=== PATIENT | male | born 1950 | race Caucasian/White ===

== ENCOUNTER → 2017-08-21 07:48 | Outpatient (CLI) | payer MEDICARE, SELFPAY ==
[2017-08-21 08:39] LABS: Alanine Aminotransferase 53 IU/L (21-72); Aspartate Aminotransferase 31 IU/L (17-59); BUN Creatinine Ratio 31.4 (6-22); Calcium 9.2 mg/dL (8.4-10.2); Cholesterol 79 mg/dL (140-199); Estimated Glomerular Filt Rate > 60.0 mL/min (>60); Glucose 131 mg/dL (80-110); HDL Cholesterol 24 mg/dL (40-60); HEMOLYSIS < 15 (0-50); LDL Cholesterol Calculated 39 mg/dL (<100); Potassium 4.5 mmol/L (3.4-5.1); Sodium 140 mmol/L (137-145); Triglycerides 81 mg/dL (35-150)
== END ==
PROVIDERS: PCP Internal Medicine; Visit Provider Internal Medicine
DX: I10 Essential (primary) hypertension (principal); Z12.5 Encounter for screening for malignant neoplasm of prostate; E78.5 Hyperlipidemia, unspecified
CPT/HCPCS: 36415; 80048; 80061; 84450; 84460; G0103

== ENCOUNTER → 2018-07-26 07:56 | Outpatient (CLI) | payer MEDICARE, SELFPAY ==
[2018-07-26 08:39] LABS: Alanine Aminotransferase 47 IU/L (21-72); Aspartate Aminotransferase 30 IU/L (17-59); Blood Urea Nitrogen 25 mg/dL (9-20); Calcium 9.4 mg/dL (8.4-10.2); Carbon Dioxide 29 mmol/L (22-32); Chloride 100 mmol/L (98-107); Cholesterol 89 mg/dL (140-199); Estimated Glomerular Filt Rate > 60.0 mL/min (>60); Glucose 112 mg/dL (80-110); HDL Cholesterol 27 mg/dL (40-60); HEMOLYSIS < 15 (0-50); LDL Cholesterol Calculated 41 mg/dL (<100); Potassium 4.1 mmol/L (3.4-5.1); Sodium 137 mmol/L (137-145); Triglycerides 106 mg/dL (35-150)
[2018-07-26 09:08] LABS: Prostate Specific Antigen Scrn 1.27 ng/mL (0.1-4.0)
[2018-07-26 09:27] LABS: Vitamin D 25 Hydroxy (D3) 36.9 ng/mL (30.0-100.0)
== END ==
PROVIDERS: PCP Internal Medicine; Visit Provider Internal Medicine
DX: Z12.5 Encounter for screening for malignant neoplasm of prostate (principal); E78.5 Hyperlipidemia, unspecified; E55.9 Vitamin D deficiency, unspecified; I25.10 Atherosclerotic heart disease of native coronary artery without angina pectoris
CPT/HCPCS: 36415; 80048; 80061; 82306; 84450; 84460; G0103

== ENCOUNTER → 2019-11-26 08:04 | Outpatient (CLI) | payer MEDICARE, SELFPAY ==
[2019-11-26 09:27] LABS: Hemoglobin A1C% w Est Avg Glu 6.8 % (4.0-6.0)
[2019-11-26 09:46] LABS: Alanine Aminotransferase 41 IU/L (<50); Albumin 4.4 g/dL (3.5-5.0); Albumin Globulin Ratio 1.5 (1.0-2.8); Alkaline Phosphatase 51 U/L (38-126); Aspartate Aminotransferase 29 IU/L (17-59); BUN Creatinine Ratio 22.5 (6-22); Bilirubin Total 0.8 mg/dL (0.2-1.3); Blood Urea Nitrogen 18 mg/dL (9-20); Calcium 9.4 mg/dL (8.4-10.2); Carbon Dioxide 28 mmol/L (22-32); Chloride 101 mmol/L (98-107); Cholesterol 105 mg/dL (140-199); Estimated Glomerular Filt Rate > 60.0 mL/min (>60); Globulin 2.9 g/dL (1.7-4.1); Glucose 147 mg/dL (80-110); HDL Cholesterol 32 mg/dL (40-60); HEMOLYSIS < 15 (0-50); LDL Cholesterol Calculated 38 mg/dL (<100); Potassium 4.4 mmol/L (3.4-5.1); Sodium 137 mmol/L (137-145); Total Protein 7.3 g/dL (6.3-8.2); Triglycerides 177 mg/dL (35-150)
== END ==
PROVIDERS: PCP Internal Medicine; Referring Provider Internal Medicine; Visit Provider Internal Medicine
DX: E78.5 Hyperlipidemia, unspecified (principal); E11.9 Type 2 diabetes mellitus without complications; Z12.5 Encounter for screening for malignant neoplasm of prostate; I10 Essential (primary) hypertension
CPT/HCPCS: 36415; 80053; 80061; 83036; 84153; G0103

== ENCOUNTER → 2021-02-19 08:24 | Outpatient (CLI) | payer MEDICARE, SELFPAY ==
[2021-02-19 10:20] LABS: Hemoglobin A1C% w Est Avg Glu 6.2 % (4.0-6.0)
[2021-02-19 10:21] LABS: Alanine Aminotransferase 59 IU/L (<50); Albumin 4.4 g/dL (3.5-5.0); Albumin Globulin Ratio 1.6 (1.0-2.8); Alkaline Phosphatase 47 U/L (38-126); Aspartate Aminotransferase 38 IU/L (17-59); BUN Creatinine Ratio 21.3 (6-22); Bilirubin Total 0.8 mg/dL (0.2-1.3); Blood Urea Nitrogen 20 mg/dL (9-20); Calcium 9.4 mg/dL (8.4-10.2); Carbon Dioxide 30 mmol/L (22-32); Chloride 99 mmol/L (98-107); Cholesterol 125 mg/dL (140-199); Estimated Glomerular Filt Rate > 60.0 mL/min (>60); Globulin 2.8 g/dL (1.7-4.1); Glucose 152 mg/dL (80-110); HDL Cholesterol 30 mg/dL (40-60); HEMOLYSIS < 15 (0-50); LDL Cholesterol Calculated 57 mg/dL (<100); Potassium 4.2 mmol/L (3.4-5.1); Sodium 137 mmol/L (137-145); Total Protein 7.2 g/dL (6.3-8.2); Triglycerides 188 mg/dL (35-150)
[2021-02-19 10:47] LABS: Prostate Specific Antigen 1.82 ng/mL (0.10-4.00)
[2021-02-19 11:07] LABS: Creatinine Urine Random 100.8 mg/dL
[2021-02-19 11:12] LABS: Microalbumin Urine Random < 0.6 mg/dL (0-1.6)
[2021-02-19 11:16] LABS: Hep C Virus Ab w/Reflex Quant NEGATIVE s/c (NEGATIVE)
== END ==
PROVIDERS: PCP Internal Medicine; Referring Provider Internal Medicine; Visit Provider Internal Medicine
DX: E11.65 Type 2 diabetes mellitus with hyperglycemia (principal); E78.5 Hyperlipidemia, unspecified; Z12.5 Encounter for screening for malignant neoplasm of prostate; Z11.59 Encounter for screening for other viral diseases
CPT/HCPCS: 36415; 80053; 80061; 82043; 82570; 83036; 84153; 86803; G0103

== ENCOUNTER → 2021-04-09 10:00 | Outpatient (CLI) | payer MEDICARE, SELFPAY ==
[2021-04-09 11:08] LABS: COVID19 -Nasal RAPID Negative (Negative)
== END ==
PROVIDERS: PCP Internal Medicine; Visit Provider Nurse Practitioner Critical Care Medicine
DX: Z20.822 Contact with and (suspected) exposure to COVID-19 (principal)
CPT/HCPCS: 87635

== ENCOUNTER 2022-08-04 02:21 | Emergency (ER) | payer MEDICARE, SELFPAY ==
[2022-08-04 02:29] VITALS: BP 180/91; PULSE 82; RESP 18; TEMP 36.6; O2SAT 95; BMI 28.6
--- NOTE | 2022-08-04 04:07 | DI.CT.S_ITS ---
PROCEDURE: CT CERVICAL SPINE WO CON INDICATIONS: neck pain, injured on boat. TECHNIQUE: Noncontrast 3 mm thick sections acquired from the skull base to the T4 level. Sagittal and coronal reformats were then constructed. For radiation dose reduction, the following was used: automated exposure control, adjustment of mA and/or kV according to patient size. COMPARISON: [facility] [place], CR, XR CERVICAL SPINE WITH OBLIQUES, 09/28/2021, 13:11. [facility], CR, CERVICAL SPINE 2 OR 3 VIEWS, 06/11/2016, 19:25. [place] [facility], MR, MR CERVICAL SPINE WO CON, 07/01/2016, 12:28. CR, CERVICAL SPINE 4 VIEWS, 04/05/2012, 11:30. [facility], CT, C-SPINE WITHOUT CONTRAST, 05/15/2016, 20:26. FINDINGS: Image quality: Excellent. Bones: No fractures or dislocations. Trace anterolisthesis of C3 on C4 and C4 on C5. Degenerative disc disease, severe at C5-C6, moderate at C6-C7. Bilateral facet arthropathy throughout the cervical spine, most pronounced at C4-C5 on the right. Visualized superior ribs are intact. Soft tissues: Prevertebral soft tissues are normal in thickness. No paravertebral hematomas. No apical pneumothoraces. IMPRESSION: 1. No cervical spine fractures. 2. Degenerative changes as described. 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 Dictated by: Savanna Thornton M.D. on 08/04/2022 at 8:00 Approved by: Savanna Thornton M.D. on 08/04/2022 at 8:03
[2022-08-04] MEDS: LORazepam 0.5 MG TABLET PO (04:14)
[2022-08-04 04:18] VITALS: BP 161/77; PULSE 74; RESP 16; O2SAT 95
--- NOTE | 2022-08-04 06:00 | ED_ITS ---
HPI - Neck Pain/Injury General Chief Complaint: Neck Pain/Injury Stated Complaint: neck pain Time Seen by Provider: 08/04/22 04:06 Source: patient Mode of arrival: Ambulatory Limitations: no limitations History of Present Illness HPI Narrative: This is a 71-year-old with history of prior [place], patient takes medication for hypertension, dyslipidemia and Plavix daily. Patient states he is had about years of chronic neck pain intermittently. 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 He is never required any significant interventions. He had been taking NSAIDs intermittently over the years but bumped heart attacks after taking them regularly and was told to avoid them in the future. He states he had another episode about 6-7 months ago. He states this does not feel anything like his prior heart attacks. He states about 5 days ago he started had increasing worsening of pain in the neck little bit more on the left. He states they have a new puppy that pulls, he then went [place] in [place] were quite rough through the weekend and increased his symptoms quite a bit. He did not have any trauma or falls but states there was a lot movement banging. 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 Patient states his range of motion is improving but felt sort of stuck to the left. He had a big jolt down his body of pain. He states no pain down his arms. No numbness, tingling or weakness at any point. 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 He has not appreciated any mobility issues with his arms below but lifting them up high above his head. Patient states he has seen Dr. Beckford for Orthopedic surgery and has some available for follow-up. He denies any drug allergies. No tobacco, alcohol or illicit. Related Data Home Medications Medication Instructions Recorded Confirmed ramipril 10 mg capsule (Altace) 10 mg PO QDAY ##0 04/27/12 01/24/22 clopidogrel 75 mg tablet 75 mg PO QDAY ##0 05/30/16 01/24/22 metoprolol tartrate 25 mg tablet 25 mg PO BID ##0 05/30/16 01/24/22 cyclobenzaprine 5 mg tablet ##0 06/11/16 01/24/22 metformin PO 08/08/18 01/24/22 nitroglycerin sublingual 08/08/18 01/24/22 Previous Rx's Medication Instructions Recorded oxycodone-acetaminophen 5 mg-325 0 PO Q4H PRN #10 tabs 03/16/16 mg tablet (Percocet) oxycodone-acetaminophen 10 mg-325 1 tab PO Q4HP PRN #60 tabs 06/01/16 mg tablet (Percocet) azithromycin 250 mg tablet See Rx Instructions PO .COMPLEX #6 08/08/18 tabs lidocaine 5 % topical patch 1 patch topical DAILY #30 ea 08/04/22 lorazepam 0.5 mg tablet (Ativan) 0.5 mg PO TID PRN muscle spasm #10 08/04/22 tabs oxycodone-acetaminophen 5 mg-325 1 tab PO Q6H PRN pain #10 tabs 08/04/22 mg tablet (Percocet) Allergies Allergy/AdvReac Type Severity Reaction Status Date / Time No Known Allergies Allergy Uncoded 01/24/22 18:28 Review of Systems Review of Systems ROS Unobtainable: All systems reviewed & are unremarkable except as noted in HPI and below Patient History Social History Smoking Status: Never smoker Smoking Status: Never smoker Exam Narrative Exam Narrative: GEN: well nourished, well appearing male, alert and oriented x 3, patient appears to be in [id number] distress. HEENT: Atraumatic, pupils are equal round reactive to light, extraocular movements are intact, nares are clear. Throat is clear without any exudates, erythema, tonsillar enlargement or uvular deviation, normal speech. HEART: Regular rate and rhythm without murmur, clicks, rubs. pulses are equal in upper extremities LUNGS:Lungs clear to auscultation, no wheezes, rales, crackles, chest moves symmetrically ABD:bowel sounds normal, soft, non-tender, no guarding, rebound, rigidity, no masses noted, no hepatosplenomegaly :No CVA tenderness MSCL: Non-tender, no muscle atrophy, muscles strength 5/5 upper and lower extremities, full range of motion. BACK: No cervical, thoracic or lumbar vertebral point tenderness. Patient has decreased range of motion of the neck patient can rotate about 45? to the right can go about 30-35 degrees to the left, patient has slight flexion but is uncomfortable with extension and flexion in general as well as side bending. Patient's gait is normal. 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 2+ radial pulses bilaterally. NEURO:CN 2-12 intact, sensation normal. SKIN: No rash, erythema or skin changes. No bruising. Initial Vital Signs Initial Vital Signs: Vital Signs Temperature 98 F 08/04/22 02:29 Pulse Rate 82 08/04/22 02:29 Respiratory Rate 18 08/04/22 02:29 Blood Pressure 180/91 H 08/04/22 02:29 Pulse Oximetry 95 08/04/22 02:29 Oxygen Delivery Method Room Air 08/04/22 02:29 Course Orders Ordered: Discontinued Medications Lidocaine (Remove Lidocaine Patch) 1 each TOP BEDTIME ONE Stop: 08/04/22 05:41 Last Admin: 08/04/22 06:34 Dose: Not Given Documented By: MOHINDER Lidocaine (Lidocaine Patch 1 Each Adh..Patch) 1 each TOP NOW ONE Stop: 08/04/22 05:46 Last Admin: 08/04/22 06:01 Dose: 1 each Documented By: MOHINDER Lorazepam (Lorazepam 0.5 Mg Tablet) 0.5 mg PO NOW ONE Stop: 08/04/22 04:09 Last Admin: 08/04/22 04:14 Dose: 0.5 mg Documented By: Vital Signs Vital signs: Vital Signs - 8 hr 08/04/22 02:29 08/04/22 04:18 Temperature 98 F Pulse Rate 82 74 Respiratory Rate 18 16 Blood Pressure 180/91 H 161/77 H Pulse Oximetry 95 95 Oxygen Delivery Method Room Air Room Air MDM - Neck Pain/Injury Imaging Data CT - cervical spine: Radiologist's Impression: Straightening of the normal cervical lordosis. Vertebral body heights are well maintained. Intervertebral disc space narrowing at C3-4 C4-5 C5-6 C6-7-C7-T1 with broad based disc osteophyte complexes at C2-3 C3-4 C4-5 C5-6 C6-7 with bilateral neural foraminal narrowing at these levels and mild central canal stenosis. Multilevel uncovertebral facet arthrosis. No fracture or subluxation. Posterior elements are intact. Multilevel uncovertebral facet arthrosis. MDM Narrative Medical decision making narrative: This is a 71-year-old male who presents with increased neck pain patient denies any numbness tingling or weakness without any recent trauma. Patient has not had any acute neurologic changes. He is had chronic neck pain was fishing in [place] days ago was slowly improving and then as putting on his T- shirt and hyperextending his neck and elevating his arms felt sort of a crack and had increased pain. He took oral narcotic pain medication at home, had muscle relaxer and lidocaine patch here which has been helpful still uncomfortable but improving. CT C-spine does not show fracture but shows multiple potential causes for pain. He is neurologically intact and does not a ppear to require MRI at this time. Patient was given strict return precautions, he has orthopedic follow-up and for pain medication muscle relaxer and lidocaine patch. Patient given a copy of his CT report and discussed signs and symptoms to watch for and reasons to return emergently. Discharge Plan Departure Patient Disposition: Home Clinical Impression: Cervical pain (neck) Instructions: DI for Neck Pain Activity Restrictions/Additional Instructions: Your imaging shows narrowing throughout the cervical spine, osteophytes and bilateral neural foraminal narrowing and some mild central canal stenosis all of these can cause pain. Please follow-up with orthopedic surgery for recheck they may obtain an MRI if your symptoms are persisting. You can continue with lidocaine patches. You can take oxycodone 1-2 tablets every 6 hours as needed. This medication can make you sleepy do not drive, perform hazardous activities or make any major decisions while taking it.? This medication will make you constipated please take a stool softener once to twice daily until stools are soft and regular. You may take Ativan 1 tablet every 8 hours as needed.? This medication can also make you sleepy especially when taken with oxycodone.? Use with caution. Prescription sent to [facility] in [place]. 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 Prescriptions: New oxycodone-acetaminophen [Percocet] 5-325 mg tablet 1 tab PO Q6H PRN (Reason: pain) Qty: 10 0RF lorazepam [Ativan] 0.5 mg tablet 0.5 mg PO TID PRN (Reason: muscle spasm) Qty: 10 0RF lidocaine 5 % adhesive patch,medicated 1 patch topical DAILY Qty: 30 0RF Rx Instructions: leave on most painful area for up to 12 hrs No Action metformin PO nitroglycerin Sublingual azithromycin 250 mg tablet See Rx Instructions PO .COMPLEX Qty: 6 0RF Rx Instructions: take 500 mg today (day 1), then 250 mg for 4 days (days 2-5) PO ramipril [Altace] 10 MG capsule 10 mg PO QDAY Qty: 0 oxycodone-acetaminophen [Percocet] 5 MG/325 MG tablet 0 PO Q4H PRNQty: 10 0RF clopidogrel 75 MG tablet 75 mg PO QDAY Qty: 0 metoprolol tartrate 25 MG tablet 25 mg PO BID Qty: 0 oxycodone-acetaminophen [Percocet] 10 MG/325 MG tablet 1 tab PO Q4HP PRNQty: 60 0RF cyclobenzaprine 5 mg tablet Qty: 0 Referrals: Miscellaneous,Doctor, MD [Primary Care Provider] - Stand Alone Forms: Patient Portal/API
[2022-08-04] MEDS: LIDOCAINE PATCH 1 EACH ADH..PATCH TOP (06:01)
[2022-08-04 06:39] VITALS: BP 149/72; PULSE 69; RESP 16; O2SAT 96
== END 2022-08-04 06:42 | disposition home or self-care (01) ==
PROVIDERS: Emergency Provider Emergency Medicine
DX: M54.2 Cervicalgia (principal)
CPT/HCPCS: 72125; 99284

== ENCOUNTER → 2022-10-27 07:38 | Outpatient (CLI) | payer MEDICARE, SELFPAY ==
[2022-10-27 08:38] LABS: Creatinine Urine Random 70.3 mg/dL
[2022-10-27 08:41] LABS: Alanine Aminotransferase 37 IU/L (<50); Albumin 4.1 g/dL (3.5-5.0); Albumin Globulin Ratio 1.4 (1.0-2.8); Alkaline Phosphatase 53 U/L (38-126); Aspartate Aminotransferase 27 IU/L (17-59); BUN Creatinine Ratio 26.9 (6-22); Bilirubin Total 0.4 mg/dL (0.2-1.3); Blood Urea Nitrogen 21 mg/dL (9-20); Calcium 8.8 mg/dL (8.4-10.2); Carbon Dioxide 24 mmol/L (22-32); Chloride 104 mmol/L (98-107); Cholesterol 105 mg/dL (140-199); Estimated Glomerular Filt Rate > 60 mL/min (>60); Globulin 2.9 g/dL (1.7-4.1); Glucose 154 mg/dL (80-110); HDL Cholesterol 34 mg/dL (40-60); HEMOLYSIS < 15 (0-50); LDL Cholesterol Calculated 44 mg/dL (<100); Potassium 4.3 mmol/L (3.4-5.1); Sodium 137 mmol/L (137-145); Triglycerides 134 mg/dL (35-150)
[2022-10-27 08:49] LABS: Microalbumin Urine Random < 0.6 mg/dL (0-1.6)
[2022-10-28 06:33] LABS: Labcorp Hemoglobin (Hb) A1c 6.3 % (4.8-5.6)
[2022-10-28 12:41] LABS: PSA, Total 1.5 ng/mL (0.0-4.0)
== END ==
PROVIDERS: PCP Internal Medicine; Referring Provider Internal Medicine; Visit Provider Internal Medicine
DX: E78.5 Hyperlipidemia, unspecified (principal); E11.65 Type 2 diabetes mellitus with hyperglycemia; N40.0 Benign prostatic hyperplasia without lower urinary tract symptoms
CPT/HCPCS: 36415; 80053; 80061; 82043; 82570; 83036; 84153; 84154

== ENCOUNTER → 2023-02-09 14:09 | Outpatient (CLI) | payer MEDICARE, SELFPAY ==
[2023-02-09 16:26] LABS: C-Reactive Protein Quant < 0.5 mg/dL (<1.0)
== END ==
PROVIDERS: PCP Internal Medicine; Referring Provider Internal Medicine; Visit Provider Internal Medicine
DX: I20.0 Unstable angina (principal)
CPT/HCPCS: 36415; 86140

== ENCOUNTER → 2023-08-09 11:18 | Outpatient (CLI) | payer MEDICARE, SELFPAY ==
[2023-08-09 11:45] LABS: Add Manual Diff / Slide Review NO; Basophils Absolute Auto 0 /uL (0-100); Basophils Percent Auto 0.5 % (0-2); Eosinophils Absolute Auto 100 /uL (0-450); Eosinophils Percent Auto 0.7 % (2-4); Hematocrit 46.6 % (41-53); Hemoglobin 15.9 g/dL (13.5-17.5); Lymphocytes Absolute Auto 1300 /uL (1100-4500); Lymphocytes Percent Auto 14.5 % (25-40); Mean Corpuscular HGB Conc 34.2 % (30-36); Mean Corpuscular Hemoglobin 31.3 PG (26-34); Mean Corpuscular Volume 91.6 fL (80-100); Monocytes Absolute Auto 1000 /uL (0-900); Monocytes Percent Auto 10.3 % (3-14); Neutrophils Absolute Auto 6900 /uL (1500-7000); Platelet Count 223 X10^3/uL (150-400); Red Blood Cell Count 5.09 X10^6/uL (4.5-5.9); White Blood Cell Count 9.3 X10^3/uL (4.5-11.0)
[2023-08-09 11:52] LABS: INR 1.2 (0.9-1.3); Prothrombin Time 13.6 SECONDS (9.4-12.5)
[2023-08-09 11:57] LABS: Alanine Aminotransferase 37 IU/L (<50); Albumin 4.5 g/dL (3.5-5.0); Albumin Globulin Ratio 1.6 (1.0-2.8); Alkaline Phosphatase 48 U/L (38-126); Aspartate Aminotransferase 25 IU/L (17-59); BUN Creatinine Ratio 23.2 (6-22); Bilirubin Total 0.6 mg/dL (0.2-1.3); Blood Urea Nitrogen 19 mg/dL (9-20); Calcium 9.6 mg/dL (8.4-10.2); Carbon Dioxide 26 mmol/L (22-32); Chloride 109 mmol/L (98-107); Estimated Glomerular Filt Rate > 60 mL/min (>60); Globulin 2.8 g/dL (1.7-4.1); Glucose 184 mg/dL (80-110); HEMOLYSIS < 15 (0-50); Potassium 4.2 mmol/L (3.4-5.1); Sodium 142 mmol/L (137-145); Total Protein 7.3 g/dL (6.3-8.2)
== END ==
PROVIDERS: PCP Internal Medicine; Referring Provider Internal Medicine; Visit Provider Internal Medicine
DX: I20.0 Unstable angina (principal)
CPT/HCPCS: 36415; 80053; 85025; 85610

== ENCOUNTER → 2024-09-19 09:16 | Outpatient (CLI) | payer MEDICARE, SELFPAY ==
[2024-09-19 09:48] LABS: Add Manual Diff / Slide Review NO; Basophils Absolute Auto 0 /uL (0-100); Basophils Percent Auto 0.6 % (0-2); Eosinophils Absolute Auto 100 /uL (0-450); Eosinophils Percent Auto 1.2 % (2-4); Hematocrit 46.1 % (41-53); Hemoglobin 15.9 g/dL (13.5-17.5); Lymphocytes Absolute Auto 1300 /uL (1100-4500); Lymphocytes Percent Auto 18.6 % (25-40); Mean Corpuscular HGB Conc 34.4 % (30-36); Mean Corpuscular Hemoglobin 31.8 PG (26-34); Mean Corpuscular Volume 92.5 fL (80-100); Monocytes Absolute Auto 800 /uL (0-900); Monocytes Percent Auto 10.8 % (3-14); Neutrophils Absolute Auto 4900 /uL (1500-7000); Neutrophils Percent Auto 68.8 % (50-75); Platelet Count 200 X10^3/uL (150-400); Red Blood Cell Count 4.98 X10^6/uL (4.5-5.9); Red Cell Distribution Width 13.2 % (11.6-14.8); White Blood Cell Count 7.2 X10^3/uL (4.5-11.0)
[2024-09-19 10:10] LABS: Alanine Aminotransferase 40 IU/L (<50); Albumin 4.3 g/dL (3.5-5.0); Albumin Globulin Ratio 1.6 (1.0-2.8); Alkaline Phosphatase 48 U/L (38-126); Aspartate Aminotransferase 29 IU/L (17-59); BUN Creatinine Ratio 25.6 (6-22); Bilirubin Total 0.5 mg/dL (0.2-1.3); Blood Urea Nitrogen 20 mg/dL (9-20); Calcium 9.9 mg/dL (8.4-10.2); Carbon Dioxide 24 mmol/L (22-32); Chloride 104 mmol/L (98-107); Cholesterol 112 mg/dL (140-199); Estimated Glomerular Filt Rate > 60 mL/min (>60); Globulin 2.7 g/dL (1.7-4.1); Glucose 171 mg/dL (70-99); HDL Cholesterol 34 mg/dL (40-60); HEMOLYSIS < 15 (0-50); LDL Cholesterol Calculated 55 mg/dL (<100); Potassium 4.3 mmol/L (3.4-5.1); Sodium 137 mmol/L (137-145); Triglycerides 117 mg/dL (35-150)
[2024-09-19 10:59] LABS: Hemoglobin A1C% w Est Avg Glu 6.1 % (4.0-6.0)
== END ==
PROVIDERS: PCP Family Medicine; Referring Provider Family Medicine; Visit Provider Family Medicine
DX: I10 Essential (primary) hypertension (principal); I25.10 Atherosclerotic heart disease of native coronary artery without angina pectoris; R53.83 Other fatigue
CPT/HCPCS: 36415; 80053; 80061; 83036; 85025

== ENCOUNTER → 2024-12-31 14:00 | Outpatient (CLI) | payer MEDICARE, SELFPAY ==
--- NOTE | 2024-12-31 14:03 | DI.RAD.S_ITS ---
PROCEDURE: XR ANKLE LT MIN 3V INDICATIONS: Ankle pain TECHNIQUE: 3 views of the ankle were acquired. COMPARISON: None. FINDINGS: Bones: No acute fractures or dislocations. Ankle mortise is normally aligned. No suspicious bony lesions. Old healed tibia and suspected fibular fractures. Minimal to mild arthritic changes at the ankle. Soft tissues: No tibiotalar joint effusion. Achilles tendon appears normal. IMPRESSION: No visualized acute fracture or dislocation. However, if clinical concern and/or pain persist, short interval imaging followup in 7-10 days is recommended, as occult injury cannot be definitively excluded. Dictated by: Christa Cardenas M.D. on 12/31/2024 at 18:02 Approved by: Christa Cardenas M.D. on 12/31/2024 at 18:02
== END ==
PROVIDERS: PCP Family Medicine; Referring Provider Physician Assistant Medical; Visit Provider Physician Assistant Medical
DX: M25.579 Pain in unspecified ankle and joints of unspecified foot (principal)
CPT/HCPCS: 73610